=== PATIENT | female | born 1975 | race Caucasian/White ===

== ENCOUNTER 2021-12-16 08:19 | Emergency (ER) | payer SELFPAY ==
[2021-12-16] MEDS ORDERED: Albuterol/Ipratropium 3.0-0.5 MG/3 ML Neb Soln NEB ONE ×2 (08:36→09:24)
[2021-12-16] MEDS ORDERED: methylPREDNISolone Sodium Succinate 125 MG/2 ML SDV IVPUSH ONE (08:36)
[2021-12-16] MEDS ORDERED: Albuterol 0.083% 2.5 MG/3 ML Neb Soln NEB ONE (11:32)
== END 2021-12-16 12:14 | disposition home or self-care (01) ==
LOC: JD.ED 08:19
DX: J45.901 Unspecified asthma with (acute) exacerbation (principal); Z88.6 Allergy status to analgesic agent; Z91.041 Radiographic dye allergy status; Z88.8 Allergy status to other drugs, medicaments and biological substances
CPT/HCPCS: 36415; 71045; 80053; 84484; 85025; 85379; 93005; 94640; 96374; 99285; J2930; J7620-GY

== ENCOUNTER 2021-12-21 07:09 | Emergency (ER) | payer SELFPAY ==
[2021-12-21] MEDS ORDERED: Sodium Bicarbonate 8.4% 50 MEQ/50 ML Syringe IV ONE ×2 (07:10→07:23)
[2021-12-21] MEDS ORDERED: EPINEPHrine 1:10,000 1 MG/10 ML Syringe IV ONE ×2 (07:10→07:16)
[2021-12-21] MEDS ORDERED: propofoL 100 ML ONE (07:21)
[2021-12-21] MEDS ORDERED: Albuterol 0.083% 2.5 MG/3 ML Neb Soln INH ONE (07:30)
[2021-12-21] MEDS ORDERED: Albuterol/Ipratropium 3.0-0.5 MG/3 ML Neb Soln ONE (08:00)
[2021-12-21] MEDS ORDERED: Sodium Chloride 0.9% 1,000 ML IV SCH (08:00)
[2021-12-21 08:26] LABS: ESTIMATED GFR 57 mL/min (>60)
[2021-12-21] MEDS ORDERED: Sodium Bicarbonate 8.4% 50 MEQ/50 ML Syringe IVPUSH ONE (08:47)
[2021-12-21 10:27] LABS: CORONAVIRUS COVID-19 NAA NEGATIVE (NEGATIVE)
== END 2021-12-21 09:20 ==
LOC: JD.ED 07:09
DX: I46.9 Cardiac arrest, cause unspecified (principal); U07.1 COVID-19; J44.9 Chronic obstructive pulmonary disease, unspecified; F17.210 Nicotine dependence, cigarettes, uncomplicated; R00.0 Tachycardia, unspecified; E66.9 Obesity, unspecified; Z68.34 Body mass index [BMI] 34.0-34.9, adult; Z88.8 Allergy status to other drugs, medicaments and biological substances; Z91.041 Radiographic dye allergy status; Z79.899 Other long term (current) drug therapy
CPT/HCPCS: 0240U; 31500; 36415; 36556; 36600; 43752; 51702; 71045; 71045-26; 80053; 82553; 82803; 82947; 83605; 83735; 83880; 84484; 85007; 85027; 85379; 85610; 85730; 86850; 86900; 86901; 92950; 96361; 96374; 99285-25; A9270-GY; J0171; J2704; J3490; J7030